=== PATIENT | female | born 1965 | race Native Hawaiian/Other Pacific Islander ===

== ENCOUNTER → 2021-08-25 | Emergency (ER) | payer OTHER ==
[~2021-08-25] VITALS: Ht 165.1 cm; Wt 67.1 kg
[2021-08-25 14:19] LABS: PLATELET COUNT 210 K/uL (152-353)
[2021-08-25 14:50] LABS: PARTIAL THROMBOPLASTIN TIME 25.2 SECONDS (24.5-33.6)
[2021-08-25 15:30] VITALS: BP 103/67; TEMP 98
== END ==
LOC: ED 13:42
PROVIDERS: Emergency Medicine
DX: R07.89 Other chest pain (principal); R06.02 Shortness of breath; Z95.0 Presence of cardiac pacemaker; Z79.899 Other long term (current) drug therapy; Z53.29 Procedure and treatment not carried out because of patient's decision for other reasons
CPT/HCPCS: 80053; 83880; 84443; 84484; 85027; 85610; 85730; 96374; 99284; J3490

== ENCOUNTER 2021-09-13 18:52 | Emergency (ER) | payer OTHER ==
[~2021-09-13] VITALS: Ht 165.1 cm; Wt 65.8 kg
[2021-09-13 18:55] VITALS: TEMP 98.2
[2021-09-13 20:44] VITALS: BP 123/83
== END 2021-09-13 20:50 | disposition home or self-care (01) ==
LOC: ED 18:52
DX: M54.59 Other low back pain (principal); G89.29 Other chronic pain
CPT/HCPCS: 80307; 81002; 96372; 99282; J1885